=== PATIENT | female | born 1995 ===

== ENCOUNTER 2018-02-21 20:17 | Emergency (ER) | payer OTHER ==
[2018-02-21 20:32] VITALS: O2SAT 98
[2018-02-21] MEDS ORDERED: Sodium Chloride 0.9% 1,000 ML IV STA (20:39)
[2018-02-21 21:03] LABS: BASO # 0.1 K/uL (0.0-0.2); BASO % 0.4 % (0.0-2.0); EOS % 0.3 % (0.0-4.0); LYMPH # 0.7 K/uL (1.0-4.3); LYMPH % 6.1 % (20.0-40.0); MEAN CELL VOLUME 88.4 fl (81.0-99.0); MEAN CORPUSCULAR HEMOGLOBIN 29.5 pg (27.0-31.0); MEAN CORPUSCULAR HGB CONC 33.3 g/dL (33.0-37.0); MEAN PLATELET VOLUME 8.4 fl (7.2-11.7); MONO # 0.7 K/uL (0.0-0.8); MONO % 5.8 % (0.0-10.0); NEUT # 10.2 K/uL (1.8-7.0); NEUT % 87.4 % (50.0-75.0); PLATELET COUNT 243 K/uL (130-400); RBC 4.74 Mil/uL (3.80-5.20); RED CELL DISTRIBUTION WIDTH 13.6 % (11.5-14.5); WHITE BLOOD COUNT 11.6 K/uL (4.8-10.8)
[2018-02-21 21:12] LABS: SQUAMOUS EPITHIAL 1 /hpf (0-5); URINE BACTERIA RARE (<OCC); URINE BILIRUBIN NEGATIVE (NEGATIVE); URINE BLOOD LARGE (NEGATIVE); URINE CLARITY SLIGHTY-CLOUDY (Clear); URINE COLOR YELLOW (YELLOW); URINE GLUCOSE (UA) NEG (Normal); URINE LEUKOCYTE ESTERASE NEG Leu/uL (Negative); URINE PROTEIN 30 mg/dL (NEGATIVE)
[2018-02-21 21:13] LABS: ALB/GLOB RATIO 1.3 (1.0-2.1); ALBUMIN 4.2 g/dL (3.5-5.0); ALT/SGPT 21 U/L (9-52); AST/SGOT 25 U/L (14-36); BLOOD UREA NITROGEN 16 mg/dl (7-17); CALCIUM 9.2 mg/dL (8.4-10.2); GFR NON-AFRICAN AMERICAN > 60; LIPASE 30 U/L (23-300)
[2018-02-21 21:48] LABS: BASOPHIL 1 % (0-2); EOSINOPHIL 1 % (0-7); LYMPHOCYTE 7 % (20-50); MONOCYTE 2 % (0-10); NEUTROPHIL 89 % (42-75); PLATELET ESTIMATE NORMAL (NORMAL); TOTAL CELLS COUNTED 100
[2018-02-21 21:49] LABS: ANISOCYTOSIS SLIGHT; OVALOCYTES SLIGHT; POIKILOCYTOSIS SLIGHT
--- NOTE | 2018-02-21 21:59 | ED PDOC ---
HPI: Abdomen Time Seen by Provider: 02/21/18 20:31 Chief Complaint (Nursing): GI Problem Chief Complaint (Provider): N/V/D, epigastric pain History Per: Patient History/Exam Limitations: no limitations Onset/Duration Of Symptoms: Days (1) Outside of [place] travel?: No Current Symptoms Are (Timing): Still Present Location Of Pain/Discomfort: Epigastric Quality Of Discomfort: Dull, Cramping Associated Symptoms: Nausea, Vomiting, Diarrhea (Watery), Loss Of Appetite. denies: Fever, Chills Exacerbating Factors: None Alleviating Factors: None Past Medical History Reviewed: Historical Data, Nursing Documentation, Vital Signs Vital Signs: Last Vital Signs Temp 97.7 F 02/21/18 20:30 Pulse 93 H 02/21/18 20:30 Resp 16 02/21/18 20:30 BP 118/79 02/21/18 20:30 Pulse Ox 98 02/21/18 20:30 - Medical History PMH: No Chronic Diseases - Surgical History Surgical History: No Surg Hx - Family History Family History: States: No Known Family Hx - Living Arrangements Living Arrangements: With Family - Social History Current smoker - smoking cessation education provided: No - Home Medications Home Medications: Ambulatory Orders Medication Instructions Recorded Ondansetron ODT [Zofran ODT] 4 mg PO QID #20 odt 02/21/18 - Allergies Allergies/Adverse Reactions: Allergies Allergy/AdvReac Type Severity Reaction Status Date / Time No Known Allergies Allergy Verified 02/21/18 20:31 Review of Systems ROS Statement: Except As Marked, All Systems Reviewed And Found Negative Constitutional: Negative for: Fever, Chills Cardiovascular: Negative for: Chest Pain Respiratory: Negative for: Cough, Shortness of Breath Gastrointestinal: Negative for: Nausea, Vomiting, Abdominal Pain, Diarrhea Physical Exam - Reviewed Nursing Documentation Reviewed: Yes Vital Signs Reviewed: Yes - Physical Exam Appears: Positive for: Well, Non-toxic, No Acute Distress Head Exam: Positive for: ATRAUMATIC, NORMAL INSPECTION, NORMOCEPHALIC Skin: Positive for: Normal Color, Warm, DRY Eye Exam: Positive for: Normal appearance ENT: Positive for: Normal ENT Inspection Neck: Positive for: Normal, Painless ROM Cardiovascular/Chest: Positive for: Regular Rate, Rhythm Respiratory: Positive for: Normal Breath Sounds. Negative for: Accessory Muscle Use, Respiratory Distress Gastrointestinal/Abdominal: Positive for: Soft, Tenderness (Mild epigastric tenderness). Negative for: Normal Exam, Guarding Back: Positive for: Normal Inspection Extremity: Positive for: Normal ROM. Negative for: Tenderness, Deformity Neurologic/Psych: Positive for: Alert, Oriented - Laboratory Results Result Diagrams: 02/21/18 20:51 02/21/18 20:51 - ECG O2 Sat by Pulse Oximetry: 98 Pulse Ox Interpretation: Normal - Progress Re-evaluation Time: 23:32 Condition: Improved Medical Decision Making Medical Decision Making: Labs WNL Disposition - Clinical Impression Clinical Impression: Gastroenteritis - Patient ED Disposition Is Patient to be Admitted: No Counseled Patient/Family Regarding: Diagnosis, Need For Followup, Rx Given - Disposition Disposition: Routine/Home Disposition Time: 23:32 Condition: STABLE Prescriptions: Ondansetron ODT [Zofran ODT] 4 mg PO QID #20 odt Instructions: Gastroenteritis (ED)
[2018-02-21 23:40] VITALS: BP 108/55; PULSE 78; RESP 18; TEMP 98.6
== END 2018-02-21 23:45 | disposition home or self-care (01) ==
LOC: H.ER 20:17
DX: K52.9 Noninfective gastroenteritis and colitis, unspecified (principal)
CPT/HCPCS: 80053; 81003; 81025; 83690; 85025; 87086; 96361; 96374; 96375; 99283; J1885; J2405; J7030